=== PATIENT | female | born 1990 | race Caucasian/White ===

== ENCOUNTER → 2018-02-25 | Outpatient (CLI) | payer BC, OTHER ==
[2018-02-25 17:23] LABS: BASO # 0.1 10^3/uL (0.0-0.2); BASO % 0.8 % (0.0-1.0); EOS % 0.5 % (0.0-3.0); HEMOGLOBIN 13.6 g/dl (12.0-15.5); IMMATURE GRANULOCYTE % 0.2 % (0-3.0); LYMPH # 2.1 10^3/uL (1.5-6.5); LYMPH % 31.3 % (24.0-44.0); MEAN CORPUSCULAR HEMOGLOBIN 31.1 pg (27.0-33.0); MEAN CORPUSCULAR HGB CONC 34.9 g/dl (32.0-36.5); MEAN CORPUSCULAR VOLUME 89.2 fl (80.0-96.0); MONO # 0.5 10^3/uL (0.0-0.8); MONO % 7.6 % (0.0-5.0); NEUTROPHILS # 3.9 10^3/uL (1.8-7.7); NEUTROPHILS % 59.6 % (36.0-66.0); PLATELET COUNT, AUTOMATED 314 10^3/uL (150-450); RED BLOOD COUNT 4.37 10^6/uL (4.00-5.40); WHITE BLOOD COUNT 6.6 10^3/uL (4.0-10.0)
[2018-02-25 20:18] LABS: CHLAMYDIA DNA AMPLIFICATION NEGATIVE (NEGATIVE); GC DNA AMPLIFICATION NEGATIVE (NEGATIVE)
[2018-02-27 11:24] LABS: HBsAg Prenatal NEGATIVE (NEGATIVE); HIV 1&2 SCREEN CENTAUR NEGATIVE (NEGATIVE); RUBELLA IgG QUALITATIVE IMMUNE (IMMUNE)
[2018-02-27 11:24] LABS: HEPATITIS C VIRUS ABY INDEX < 0.0 INDEX (<0.8)
== END ==
LOC: M SMT 13:02
DX: Z34.81 Encounter for supervision of other normal pregnancy, first trimester (principal); Z3A.12 12 weeks gestation of pregnancy
CPT/HCPCS: 86762

== ENCOUNTER → 2018-04-15 | Outpatient (CLI) | payer BC ==
--- NOTE | 2018-04-16 04:41 | REP ---
Clinical: Anatomical evaluation. Comparison: None . Findings: Examination demonstrates a single live intrauterine in breech presentation. motion is identified by technologist. Placenta is noted the anterior and grade air grade zero without evidence for placenta previa or abruption. Amniotic fluid volume is normal. Cervix measures 3.6 cm in length and appears closed. Nuchal cord noted Gestational age by LMP 20 weeks 1 day with MORENA 09/01/2018 . Gestational age by current measurements 20 weeks 4 days with MORENA 08/29/2018 . FHR equals 144 beats per minute. BPD 4.6 cm 20 weeks 0 days HC 18.1 cm 20 weeks 4 days AC 16.3 cm 21 weeks 3 days FL 3.6 cm 21 weeks 2 days HL 3.5 cm 21 weeks 6 days HC/AC ratio 1.11 Estimated weight 408 grams ( 89th percentile). Anatomical assessment demonstrates normal structures including cranium, cavum, cerebellum/posterior fossa, facial features, lungs, diaphragm, stomach, cord insertion/three-vessel cord, kidneys/bladder, spine, and extremities. Small left choroid plexus cyst noted. Impression: 1. Single live intrauterine in breech presentation demonstrating appropriate interval growth. 2. Nuchal cord noted. 3. Left choroid plexus cyst along with incomplete evaluation of the facial features and heart/ventricular outflow tracts may warrant reevaluation and follow-up. Electronically Signed by J Carlos Patel MD 04/16/2018 04:33 A
== END ==
LOC: M LRY 08:12
PROVIDERS: ATTEND Advanced Practice Midwife
DX: Z36.89 Encounter for other specified antenatal screening (principal); Z3A.20 20 weeks gestation of pregnancy

== ENCOUNTER → 2018-05-15 | Outpatient (CLI) | payer BC, OTHER ==
--- NOTE | 2018-05-16 01:40 | REP ---
Clinical: Anatomical evaluation. Comparison: 04/15/2018 . Findings: Examination demonstrates a single live intrauterine in transverse (head to maternal left) presentation. motion is identified by technologist. Placenta is noted anterior and grade grade 1 without evidence for placenta previa or abruption. Amniotic fluid volume is normal. Cervix measures 3.7 cm in length and appears closed. No evidence for nuchal cord. Gestational age by LMP 24 weeks 3 days with MORENA 09/01/2018 . Gestational age by current measurements 24 weeks 4 days with MORENA 08/31/2018 . FHR equals 139 beats per minute. Estimated weight 733 grams ( 54th percentile). Anatomical assessment demonstrates normal structures including cranium, choroid plexus, cavum, cerebellum/posterior fossa, facial features, lungs, diaphragm, stomach, cord insertion/three-vessel cord, kidneys/bladder, spine, and extremities. Suboptimal evaluation of the heart and cardiac ventricular outflow tracts due to positioning. Impression: 1. Single live intrauterine in transverse lie demonstrating appropriate interval growth. 2. With exception of the heart/ventricular outflow tracts, anatomical assessment is complete and normal. No gross abnormalities are identified. Electronically Signed by J Carlos Patel MD 05/16/2018 01:32 A
== END ==
LOC: M RAD 16:35
PROVIDERS: ATTEND Advanced Practice Midwife
DX: O32.2XX0 Maternal care for transverse and oblique lie, not applicable or unspecified (principal); Z36.89 Encounter for other specified antenatal screening; Z3A.24 24 weeks gestation of pregnancy

== ENCOUNTER → 2018-06-12 | Outpatient (CLI) | payer BC, OTHER ==
--- NOTE | 2018-06-12 19:19 | REP ---
OB ULTRASOUND: Real-time sonographic evaluation of the gravid uterus is performed. There is a single living intrauterine, estimated gestational age is 28 weeks 3 days, EDC 09/01/2018. Today's measurements indicate appropriate growth. BPD 74 mm = 29 weeks 5 days, 76th percentile HC 274 mm = 20 weeks 6 days, 83rd percentile AC 261 mm = 30 weeks 2 days, 78th percentile FL 55 mm = 29 weeks 0 days, 63rd percentile HC/AC ratio 1.05 within normal range. Estimated weight 1453 grams 76th percentile. Cervix closed and measures 2.8 cm in length. heart rate 134 beats per minute. Amniotic fluid within normal limits. DARON 20.5, within normal range of 9.3 to 22.9. S/D ratio 3.14 and RI 0.68, within normal range. SEEN/GROSSLY UNREMARKABLE Lateral ventricles yes Posterior fossa yes Upper lip yes Four-chamber heart yes LVOT yes RVOT yes Stomach yes Cord insertion yes Three vessel cord yes Kidneys yes Bladder yes Spine no position: Transverse with head toward the maternal left side. Placenta: Anterior and grade 1 with no previa or abruption. Amniotic fluid: Amniotic fluid within normal limits. Electronically Signed by Dm Casillas MD 06/12/2018 08:23 P
== END ==
LOC: M RAD 14:56
PROVIDERS: ATTEND Advanced Practice Midwife
DX: O32.2XX0 Maternal care for transverse and oblique lie, not applicable or unspecified (principal); Z36.89 Encounter for other specified antenatal screening; Z3A.28 28 weeks gestation of pregnancy

== ENCOUNTER → 2018-06-17 | Outpatient (CLI) | payer BC, OTHER ==
[2018-06-17 17:43] LABS: HEMATOCRIT 33.3 % (36.0-47.0); HEMOGLOBIN 11.3 g/dl (12.0-15.5); MEAN CORPUSCULAR HEMOGLOBIN 31.4 pg (27.0-33.0); MEAN CORPUSCULAR HGB CONC 33.9 g/dl (32.0-36.5); MEAN CORPUSCULAR VOLUME 92.5 fl (80.0-96.0); PLATELET COUNT, AUTOMATED 279 10^3/uL (150-450); WHITE BLOOD COUNT 8.6 10^3/uL (4.0-10.0)
== END ==
LOC: M SMT 14:11
PROVIDERS: ATTEND Advanced Practice Midwife
DX: Z36.89 Encounter for other specified antenatal screening (principal)

== ENCOUNTER → 2018-06-26 | Outpatient (CLI) | payer BC, OTHER | LOC: M LAB 08:09 | PROVIDERS: ATTEND Advanced Practice Midwife | DX: Z34.02 Encounter for supervision of normal first pregnancy, second trimester (principal) ==

== ENCOUNTER → 2018-07-25 | Outpatient (CLI) | payer BC, OTHER ==
--- NOTE | 2018-07-25 13:27 | REP ---
OB ULTRASOUND: Real-time sonographic evaluation of the gravid uterus is performed. There is a single intrauterine gestation with an estimated gestational age 34 weeks 4 days, EDC 09/01/2018. Today's measurements indicate appropriate growth. Biometry and Growth: BPD 86 mm = 34 weeks 4 days, 50th percentile HC 323 mm = 36 weeks 3 days, 82nd percentile AC 307 mm = 34 weeks 4 days, 51st percentile FL 68 mm = 35 weeks 1 day, 58th percentile HC/AC ratio 1.05 within normal range. Estimated weight 2550 grams, 54th percentile. SEEN/GROSSLY UNREMARKABLE Lateral ventricles No Posterior fossa No Upper lip Yes Four-chamber heart Yes LVOT Yes RVOT Yes Stomach Yes Cord insertion No Three vessel cord Yes Kidneys Yes Bladder Yes Spine Yes Cervical length: The cervix could not be well seen due to shadowing from the cranium heart rate: 150 beats per minute. position: Vertex. Placenta: Anterior and grade 1 with no previa or abruption. Amniotic fluid: Within normal limits. DARON 15.3 within normal range of 8.0 to 24.9. S/D ratio: 2.24 within normal range of 2.0 -3.0. RI: 0.57 slightly below normal range of 0.59 to 0.75. Electronically Signed by Dm Casillas MD 07/25/2018 01:59 P
== END ==
LOC: M LRY 08:16
PROVIDERS: ATTEND Advanced Practice Midwife
DX: O26.843 Uterine size-date discrepancy, third trimester (principal)

== ENCOUNTER → 2018-08-08 | Outpatient (REF) | payer OTHER | LOC: M LAB REF 17:12 | PROVIDERS: ATTEND Advanced Practice Midwife | DX: Z34.03 Encounter for supervision of normal first pregnancy, third trimester (principal) ==

== ENCOUNTER 2018-09-05 05:06 | Inpatient (IN) | payer BC, OTHER ==
[2018-09-05] VITALS (45 sets, daily range): BP systolic 89–158; BP diastolic 53–89
[~2018-09-05] VITALS: Ht 167.6 cm; Wt 74.2 kg
[2018-09-05] MEDS ORDERED: LACTATED RINGER'S 1000 ML IV STA (05:28)
[2018-09-05 06:08] LABS: HEMATOCRIT 38.1 % (36.0-47.0); HEMOGLOBIN 13.2 g/dl (12.0-15.5); MEAN CORPUSCULAR HEMOGLOBIN 31.2 pg (27.0-33.0); MEAN CORPUSCULAR HGB CONC 34.6 g/dl (32.0-36.5); MEAN CORPUSCULAR VOLUME 90.1 fl (80.0-96.0); PLATELET COUNT, AUTOMATED 321 10^3/uL (150-450); RED BLOOD COUNT 4.23 10^6/uL (4.00-5.40); WHITE BLOOD COUNT 12.8 10^3/uL (4.0-10.0)
[2018-09-05] MEDS ORDERED: FENTANYL 2MCG/ML ROPIVACAINE 0.2% IN 0.9% NACL 100ML IVBAG As Ordered ONE (06:18)
[2018-09-05] MEDS ORDERED: FENTANYL/ROPIVACAINE/NACL BAG 100 ML EPIDURAL SCH (06:55)
[2018-09-05] MEDS ORDERED: ePHEDrine SULFATE 25 MG/5 ML(5MG/ML) SYRINGE IV PRN (06:55)
[2018-09-05] MEDS ORDERED: REFRIGERATOR IV KEYS XX PRN (06:55)
[2018-09-05] MEDS ORDERED: LACTATED RINGER'S 1000 ML IV PRN (06:55)
[2018-09-05] MEDS ORDERED: NALOXONE INJ 0.4 MG/1 ML VIAL (J2310) IV PRN (06:55)
[2018-09-05] MEDS ORDERED: EPIDURAL/PCA KEYS XX PRN (06:55)
[2018-09-05] MEDS ORDERED: ONDANSETRON 4MG/2ML VIAL (J2405) IV PRN (06:55)
[2018-09-05] MEDS ORDERED: diphenhydrAMINE INJ 50MG/ML VIAL (J1200) IV PRN (06:55)
[2018-09-05] MEDS ORDERED: EPIDURAL COMMENT XX SCH (06:55)
[2018-09-05] MEDS: LR 1,000 ML IV SCH ×2 (08:17→12:07)
--- NOTE | 2018-09-05 10:45 | HPE ---
DATE OF ADMISSION: 09/05/2018 HISTORY OF PRESENT ILLNESS (HPI): Patient is a 27-year-old female who is a (G) 1, para (P) 0 at 40 weeks 3 days gestation with an estimated date of delivery (MORENA) of 09/01/2018 based on her last menstrual period (LMP) and consistent with her first trimester ultrasound. She initiated care in her first trimester at [facility]. Her has been uncomplicated. She presents to labor and delivery with complaints of contractions that are every 4 minutes. She reports active movement. She denies vaginal bleeding or leaking of fluid. ALLERGIES: NO KNOWN DRUG ALLERGIES. CURRENT MEDICATIONS: - vitamins PAST MEDICAL HISTORY: Varicella as a child. SURGICAL HISTORY: None. FAMILY HISTORY: Spina bifida and hypertension. SOCIAL HISTORY: Patient is . She denies any history of abuse. She denies being a smoker. She denies alcohol or illicit drug use. LABS: Blood type is A positive. Her antibody screen is negative. Her hemoglobin and hematocrit on 02/25/2018 was 13.6 and 39 with platelets at 314. Rubella is immune. VDRL is nonreactive. Urine culture is no growth. Hepatitis B surface antigen is negative. HIV is negative. Hepatitis C is nonreactive. Gonorrhea and chlamydia both negative. 1-hour glucose test is 132 with a hemoglobin and hematocrit on 04/16/2018 of 11.3 33.3 with platelets at 279. Her 3-hour glucose test the fasting was 70, the 1-hour was 117, 2-hour 100, 3-hour 111, and her GBS was negative. PHYSICAL EXAMINATION: GENERAL: Alert and oriented times three. HEART: Regular rate and rhythm. LUNGS: Regular rate and clear to auscultation bilaterally. ABDOMEN: Gravid and palpation is moderate with contractions. EXTREMITIES: Generalized edema. No clonus. Deep tendon reflexes (DTRs) +2. HEART RATE: 140 with moderate variability with early decelerations and two noted late decelerations. CONTRACTIONS: Every 2-3 minutes. ASSESSMENT: Intrauterine at 40 weeks 3 days gestation, active labor, category 2 heart rate tracing, group B Streptococcus negative. PLAN: Admit to labor and delivery. Out of bed ad kyra. Clear liquid diet. Start IV and initiate IV bolus. Labs per unit protocol. Anesthesia consult per patient's request. Anticipate cervical change and spontaneous vaginal delivery. Anticipate resolution of category 2 tracing with IV bolus and position changes.
--- NOTE | 2018-09-05 12:38 | IPNPDOC ---
Obstetrical Progress Note Date of Service September 05, 2018 Subjective Patient is comfortable with her epidural. Assessment Heart Rate (FHR): 135 Variability: Moderate Accelerations: Positive Heart Rate Tracing: Category I Tocometer Contractions: Yes Frequency: regular, other (every 2-4 minutes) Sterile Vaginal Examination Dilation: 5 cm (5-6 cm) Effacement (%): 100% Station: -1 Postion/Presentation: Cephalic presentation Assessment and Plan Age: 27 : 1 Term: 0 Pre-term: 0 Abortions: 0 Livin EGA at Admission: 40.4 Status: Reassuring Group B Streptococcus: Negative Anticipate: Vaginal Delivery Additional Comments AROM to a scant amount of meconium noted. DANYEL TOVAR CNM September 05, 2018 12:38
[2018-09-05] MEDS ORDERED: OXYTOCIN 30 UNITS IN 0.9% NaCl 500ML IV BAG (J2590) As Ordered ONE (14:00)
[2018-09-05] MEDS ORDERED: OXYTOCIN DRIP 30 UNITS in APPROPRIATE DILUENT 1 EA IV SCH (15:37)
[2018-09-05] MEDS ORDERED: DIBUCAINE 1% OINTMENT 30GM TOP PRN (15:45)
[2018-09-05] MEDS ORDERED: IBUPROFEN 800 MG TAB PO PRN (15:45)
[2018-09-05] MEDS ORDERED: DOCUSATE SODIUM 100 MG CAP PO PRN (15:45)
[2018-09-05] MEDS ORDERED: ACETAMINOPHEN 500 MG TAB PO PRN (15:45)
[2018-09-05] MEDS ORDERED: ANUSOL HC CREAM 30GM TOP PRN (15:45)
[2018-09-05] MEDS ORDERED: RHOGAM 300 MCG (1500 IU) INJ (J2790) IM SCH (15:45)
[2018-09-05] MEDS ORDERED: METHYLERGONOVINE MALEATE 0.2 MG TAB PO PRN (15:45)
[2018-09-05] MEDS ORDERED: MEASLES,MUMPS,RUBELLA VACCINE INJ (MMR-II) (90707) SC SCH (15:45)
[2018-09-05] MEDS ORDERED: ACETAMINOPHEN TAB 650MG DOSE (2X325MG) PO PRN (15:45)
--- NOTE | 2018-09-05 16:23 | DNPDOC ---
[facility] Delivery Note Delivery Note DATE OF DELIVERY: 09/05/18 at 1436 PREDELIVERY DIAGNOSIS: 40-4/7 weeks' gestation and labor. POST DELIVERY DIAGNOSIS: Delivered. PROCEDURE: Spontaneous vaginal delivery. CLINICAL SERVICES SPECIALIST: Danyel Mosqueda CNM, JAN ANESTHESIA: epidural. ESTIMATED BLOOD LOSS: 200 mL. FINDINGS: 7 pounds 6 ounces; 3340 grams; female , Score 8/9, nuchal cord times 1 tight, meconium. DELIVERY SUMMARY: Patient is a 27-year-old female who is now a at 40.4 weeks gestation who presented to labor and delivery in active labor. She received an epidural for pain management. She progressed to fully dilated at 1402 and pushed to a living female in the DEEP position with restitution to ROT at 1436. A nuchal cord was noted x 1 tight. The anterior shoulder delivered with ease and the corpus immediately followed. The baby was active and crying and placed [id number] with mom. The cord was clamped after pulsation ceased x2 and cut by the FOB. The placenta delivered spontaneously and intact at 1440. Uterine hemostasis was achieved via rapid infusion of IV Pitocin and fundal massage. The vagina, perineum, and cervix was inspected and found to have a small right vaginal wall tear and a 1st degree perineal laceration that was repaired with a 3.[address]-1. Mom plans to breastfeed. Both mom and baby are in stable condition. DANYEL MOSQUEDA CNM September 05, 2018 16:23
[2018-09-05] MEDS: IBUPROFEN 600 MG TAB PO PRN (21:51)
[2018-09-06 06:00] VITALS: BP 117/68
[2018-09-06] MEDS: PRENATAL VITAMINS CHEWABLE TABLET PO SCH (09:32)
[2018-09-06] MEDS: IBUPROFEN 600 MG TAB PO PRN ×2 (09:32→20:14)
[2018-09-06 18:08] VITALS: BP 126/81
[2018-09-07 06:00] VITALS: BP 118/73
[2018-09-07] MEDS: PRENATAL VITAMINS CHEWABLE TABLET PO SCH (07:25)
== END 2018-09-07 11:45 | disposition home or self-care (01) | DRG 560 ==
LOC: M LDI 05:06 → M OBS 17:24
PROVIDERS: ADMIT Advanced Practice Midwife; ATTEND Advanced Practice Midwife
PROC: 10E0XZZ Delivery of Products of Conception, External Approach (ICD-10-PCS; principal; 2018-09-05)
PROC: 10907ZC Drainage of Amniotic Fluid, Therapeutic from Products of Conception, Via Natural or Artificial Opening (ICD-10-PCS; 2018-09-05)
PROC: 0HQ9XZZ Repair Perineum Skin, External Approach (ICD-10-PCS; 2018-09-05)
DX: O48.0 Post-term pregnancy (principal); O69.1XX0 Labor and delivery complicated by cord around neck, with compression, not applicable or unspecified; Z3A.40 40 weeks gestation of pregnancy; Z37.0 Single live birth; O70.0 First degree perineal laceration during delivery

== ENCOUNTER → 2019-02-26 | Outpatient (CLI) | payer OTHER ==
[2019-02-26 17:30] LABS: HEMOGLOBIN 13.8 g/dl (12.0-15.5); MEAN CORPUSCULAR HEMOGLOBIN 30.7 pg (27.0-33.0); MEAN CORPUSCULAR HGB CONC 32.9 g/dl (32.0-36.5); MEAN CORPUSCULAR VOLUME 93.3 fl (80.0-96.0); PLATELET COUNT, AUTOMATED 369 10^3/uL (150-450); WHITE BLOOD COUNT 9.6 10^3/uL (4.0-10.0)
[2019-02-26 17:42] LABS: ALBUMIN 4.1 GM/DL (3.2-5.2); ALT/SGPT 19 U/L (12-78); BILIRUBIN,TOTAL 0.4 MG/DL (0.2-1.0); BLOOD UREA NITROGEN 17 MG/DL (7-18); CARBON DIOXIDE LEVEL 27 MEQ/L (21-32); CHLORIDE LEVEL 102 MEQ/L (98-107); CREATININE FOR GFR 0.89 MG/DL (0.55-1.30); FREE T4 1.11 NG/DL (0.76-1.46); GLOMERULAR FILTRATION RATE > 60.0 (>60); GLUCOSE, FASTING 83 MG/DL (70-100); POTASSIUM SERUM 3.8 MEQ/L (3.5-5.1); SODIUM LEVEL 137 MEQ/L (136-145); TOTAL 25(OH) VITAMIN D 13.6 NG/ML (30.0-100.0); TOTAL PROTEIN 7.7 GM/DL (6.4-8.2)
== END ==
LOC: M SMT 14:36
PROVIDERS: ATTEND Advanced Practice Midwife
DX: Z12.4 Encounter for screening for malignant neoplasm of cervix (principal); R53.83 Other fatigue